=== PATIENT | male | born 1950 | race Caucasian/White ===

== ENCOUNTER 2019-09-23 01:17 | Observation (INO) ==
[2019-09-23] MEDS ORDERED: Isovue-370 500 ML BOTTLE IVP ONE (01:27)
[2019-09-23] MEDS ORDERED: Nitroglycerin 0.4 MG TAB.SUBL SL PRN (01:38)
[2019-09-23 02:05] LABS: Basophils # 0.1 K/mcL (0.0-0.2); Basophils % 0.5 %; Eosinophils # 0.2 K/mcL (0.0-0.6); Eosinophils % 1.1 %; Hematocrit 37.3 % (37.5-50.1); Hemoglobin 13.1 g/dL (12.9-16.9); Immature Granulocytes % 0.4 % (0-4); Lymphocytes # 0.7 K/mcL (0.6-4.6); Lymphocytes % 5.5 %; Mean Corpuscular HGB Conc 35.1 g/dL (31.6-35.5); Mean Corpuscular Volume 85.4 fL (83.0-100.0); Mean Platelet Volume 10.1 fL (9.4-12.4); Monocytes # 1.4 K/mcL (0.0-1.3); Monocytes % 10.5 %; Neutrophils # 10.8 K/mcL (1.6-8.9); Platelet Count 263 K/mcL (140-400); Red Blood Count 4.37 M/mcL (4.19-5.50); Red Cell Distribution Width 12.7 % (11.5-14.5); White Blood Count 13.2 K/mcL (4.3-11.1)
[2019-09-23] MEDS ORDERED: *HR* HYDROmorphone (PF) 1 MG/ML SYRINGE IVP ONE (02:14)
[2019-09-23] MEDS ORDERED: Ondansetron 4 MG/2 ML VIAL IVP ONE (02:14)
[2019-09-23 02:26] LABS: BUN/Creatinine Ratio 15 (6-26); Blood Urea Nitrogen 22 mg/dL (8-23); Calcium 9.3 mg/dL (8.6-10.3); Carbon Dioxide 26 mEq/L (23-29); Chloride 99 mEq/L (98-107); Glucose 222 mg/dL (70-105); Osmolality,Calculated 294 (280-300); Potassium 3.1 mEq/L (3.5-5.1); Sodium 137 mEq/L (136-145); eGFR For African Americans 59 (> 60); eGFR For Non-African Americans 49 (> 60)
[2019-09-23 02:27] LABS: Troponin I < 0.03 ng/mL (< 0.04)
[2019-09-23] MEDS ORDERED: 0.9 % Sodium Chloride 1,000 ML IVC ONE (02:36)
[2019-09-23] MEDS ORDERED: Potassium Chloride Elixir 20 MEQ/15 ML UDC PO ONE (02:37)
[2019-09-23] MEDS ORDERED: Naloxone 0.4 MG/ML INJ IVP PRN (06:11)
[2019-09-23] MEDS ORDERED: 0.9 % Sodium Chloride 1,000 ML IVC SCH (06:15)
[2019-09-23] MEDS ORDERED: Dextrose Gel 15 GM/37.5 ML TUBE PO PRN ×2 (06:45)
[2019-09-23] MEDS ORDERED: *HR* Dextrose 50 % in Water (Syg) 50 ML SYRINGE IVP PRN (06:45)
[2019-09-23] MEDS ORDERED: D5% in Water 1,000 ML IVC PRN (06:45)
[2019-09-23 07:26] VITALS: BP 105/63
[2019-09-23] MEDS ORDERED: LEVOTHYROXINE 50 MCG PO SCH (09:00)
[2019-09-23 11:14] LABS: Adenovirus Not Detected (Not Detect); Bordetella Pertussis Not Detected (Not Detect); Chlamydophila pneumoniae Not Detected (Not Detect); Coronavirus 229E Not Detected (Not Detect); Coronavirus HKU1 Not Detected (Not Detect); Coronavirus NL63 Not Detected (Not Detect); Coronavirus OC43 Not Detected (Not Detect); Human Metapneumovirus Not Detected (Not Detect); Human Rhinovirus/Enterovirus Not Detected (Not Detect); Influenza A Subtype 2009 H1 Not Detected (Not Detect); Influenza A Untypeable Not Detected (Not Detect); Influenza B Not Detected (Not Detect); Mycoplasma pneumoniae Not Detected (Not Detect); Parainfluenza Virus 1 Not Detected (Not Detect); Parainfluenza Virus 2 Not Detected (Not Detect); Parainfluenza Virus 3 Not Detected (Not Detect); Parainfluenza Virus 4 Not Detected (Not Detect); Respiratory Syncytial Virus Not Detected (Not Detect)
[2019-09-23] MEDS ORDERED: Perflutren Lipid Microsphere 1.3 ML in 0.9 % Sodium Chloride 8.7 ML IVP ONE (11:47)
[2019-09-23 14:56] LABS: BUN/Creatinine Ratio 16 (6-26); Blood Urea Nitrogen 21 mg/dL (8-23); Carbon Dioxide 26 mEq/L (23-29); Chloride 103 mEq/L (98-107); Glucose 154 mg/dL (70-105); Osmolality,Calculated 292 (280-300); Potassium 3.3 mEq/L (3.5-5.1); Sodium 138 mEq/L (136-145); Troponin I < 0.03 ng/mL (< 0.04); eGFR For African Americans > 60 (> 60); eGFR For Non-African Americans 56 (> 60)
[2019-09-23] MEDS ORDERED: *HR* Heparin 5,000 UNIT/ML VIAL SQ SCH (18:00)
== END 2019-09-23 14:11 | disposition home or self-care (01) ==
LOC: 2ANU 01:17 → EMEROOARM 01:17 → SUATTDRO 03:40 → 2ANU 03:55
PROVIDERS: ADMIT Internal Medicine; ATTEND Internal Medicine